=== PATIENT | female | born 1945 | race Caucasian/White ===

== ENCOUNTER 2018-09-30 15:11 | Emergency (ER) | payer MEDICARE, BC ==
[~2018-09-30] VITALS: Ht 154.9 cm; Wt 50.8 kg
--- NOTE | 2018-09-30 15:20 | NUR ---
PT BIBS FOR S/P DOG BITE R HAND; PT AAOX4, NO BLEEDING NOTED, NAD NOTED ,VSS, PENDING MD BOYER
[2018-09-30 15:25] VITALS: BP 147/83
--- NOTE | 2018-09-30 16:09 | NUR ---
Patient discharged to home in stable condition. Written and verbal after care instructions given. Patient verbalizes understanding of instruction.
== END 2018-09-30 16:18 | disposition home or self-care (01) ==
LOC: ER 15:15
DX: S61.532A Puncture wound without foreign body of left wrist, initial encounter (principal); Z88.0 Allergy status to penicillin; W54.0XXA Bitten by dog, initial encounter; Y93.89 Activity, other specified; Y92.89 Other specified places as the place of occurrence of the external cause; Y99.8 Other external cause status
CPT/HCPCS: 99283; A6402; A6403

== ENCOUNTER 2019-01-17 05:48 | Emergency (ER) | payer MEDICARE, BC ==
[~2019-01-17] VITALS: Ht 154.9 cm; Wt 53.5 kg
--- NOTE | 2019-01-17 06:05 | NUR ---
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 PT ALSO C/O NAUSEA. DENIES ABDOMINAL PAIN, DYSURIA, HEMATURIA, FEVER. PT AAOX4, APPEARS UNCOMFORTABLE. RESPIRATIONS EVEN AND UNLABORED. SKIN INTACT. ABLE TO AMBULATE WITH STEADY GAIT. VITAL SIGNS STABLE. WILL CONTINUE TO MONITOR
[2019-01-17] MEDS ORDERED: ONDANSETRON HCL/PF 4 MG/2 ML VIAL ONE (06:09)
[2019-01-17] MEDS ORDERED: KETOROLAC TROMETHAMINE 15 MG/ML VIAL ONE (06:09)
--- NOTE | 2019-01-17 06:10 | NUR ---
IV INITIATED RAC 20G. LABS DRAWN FROM SITE. CALLED LAB FOR PUTTY REMOVER. IV INTACT AND PATENT, PLACED ON SALINE LOCK.
--- NOTE | 2019-01-17 06:14 | NUR ---
Chilo junior in [facility] - 01/17/19 at 0615 by DM MD AT BEDSIDE FOR EVALUATION
[2019-01-17] MEDS: IV NS 0.9% 1,000 ML BAG IV ONE (06:16)
--- NOTE | 2019-01-17 06:16 | NUR ---
PT UNABLE TO PROVIDE URINE SAMPLE AT THIS TIME. MD KLEIN
[2019-01-17] MEDS: ONDANSETRON HCL/PF 4 MG/2 ML VIAL IVP ONE (06:18)
[2019-01-17] MEDS: KETOROLAC TROMETHAMINE INJ 30 MG/ML VIAL IV ONE (06:18)
[2019-01-17 06:26] LABS: BASOPHILS % (AUTO) 0.3 % (0.0-2.0); EOSINOPHILS % (AUTO) 2.6 % (0.0-6.0); HEMATOCRIT 38 % (33-45); HEMOGLOBIN 12.7 g/dL (11.5-14.8); LYMPHOCYTES # (AUTO) 3.6 /CMM (0.8-4.8); LYMPHOCYTES % (AUTO) 44.9 % (20.0-44.0); MEAN CORPUSCULAR HGB CONC 34 g/dl (31.0-36.0); MEAN CORPUSCULAR VOLUME 87 fL (82-100); MONOCYTES # (AUTO) 0.8 /CMM (0.1-1.30); MONOCYTES % (AUTO) 9.4 % (2.0-12.0); NEUTROPHILS # (AUTO) 3.5 /CMM (1.8-8.9); NEUTROPHILS % (AUTO) 42.8 % (43.0-81.0); PLATELET COUNT (AUTO) 248 /CMM (150-450); RED BLOOD CELL COUNT(AUTO) 4.38 MIL/uL (4.0-5.2); WHITE BLOOD COUNT (AUTO) 8.1 K/uL (4.3-11.0)
--- NOTE | 2019-01-17 06:27 | NUR ---
PICKED UP BY RADIOLOGY TO CT
[2019-01-17 06:32] LABS: CALCIUM, SERUM 9.4 mg/dL (8.5-10.1); CARBON DIOXIDE 30 mmol/L (21-32); CHLORIDE 103 mmol/L (98-107); CREATININE 0.9 mg/dL (0.6-1.3); GLUCOSE 132 mg/dL (74-106); POTASSIUM 3.8 mmol/L (3.5-5.1); SODIUM SERUM 141 mmol/L (136-145); UREA NITROGEN, BLOOD 20 mg/dL (7-18)
[2019-01-17 06:38] LABS: ALANINE AMINOTRANSFERASE 20 U/L (12-78); ALKALINE PHOSPHATASE 60 U/L (46-116); ASPARTATE AMINOTRANSFERASE 11 U/L (15-37); BILIRUBIN,DIRECT 0.1 mg/dL (0.0-0.2); BILIRUBIN,TOTAL 0.3 mg/dL (0.2-1.0); LIPASE 121 U/L (73-393); TOTAL PROTEIN, SERUM 7.8 g/dL (6.4-8.2)
[2019-01-17] MEDS ORDERED: HYDROMORPHONE 1 MG/1 ML DISP.SYRIN ONE (07:35)
[2019-01-17] MEDS: HYDROMORPHONE INJ 0.5 MG/0.5 ML SYRINGE IV ONE (07:39)
--- NOTE | 2019-01-17 07:40 | NUR ---
ASSUME PT CARE. MEDICATED ORDERED. DR XIONG AT BEDSIDE.
[2019-01-17 08:10] LABS: APPEARANCE,URINE Slightly Cloudy (CLEAR); BILIRUBIN,URINE Negative (NEGATIVE); BLOOD, URINE Trace-lysed Ery/uL (NEGATIVE); COLOR,URINE Yellow (YELLOW); KETONES,URINE Negative (NEGATIVE); LEUKOCYTE ESTERASE ,URINE Trace (NEGATIVE); NITRITE, URINE Negative (NEGATIVE); PROTEIN,URINE Negative (NEGATIVE); UGLUCOSE Negative (NEGATIVE); UROBILINOGEN,URINE 0.2 EU/dL (0.2)
[2019-01-17 08:20] LABS: BACTERIA,URINE None seen /HPF (None Seen); SQUAMOUS EPITHELIAL CELL,UR Few /HPF (None Seen)
--- NOTE | 2019-01-17 08:27 | NUR ---
Patient discharged to home in stable condition. Written and verbal after care instructions given. Patient verbalizes understanding of instruction.IV removed. Catheter intact and site benign. Pressure and 4x4 applied to site. No bleeding noted.
[2019-01-17 08:28] VITALS: BP 145/84
== END 2019-01-17 08:31 | disposition home or self-care (01) ==
LOC: ER 05:49
DX: N20.0 Calculus of kidney (principal); I10 Essential (primary) hypertension; E78.5 Hyperlipidemia, unspecified; Z88.0 Allergy status to penicillin
CPT/HCPCS: 36415; 74176; 80048; 80076; 81001; 83690; 85025; 96374; 96375; 99284; J1170; J1885; J2405; J7030; 81000-TC